=== PATIENT | female | born 1990 | race Caucasian/White ===

== ENCOUNTER 2021-01-31 15:06 | Outpatient (CLI) | payer OTHER, SELFPAY ==
[2021-01-31 15:34] VITALS: BP 140/81; PULSE 91
[2021-01-31 15:40] LABS: Basophils Percent Auto 0.2 % (0.2-1.2); Eosinophils Absolute Auto 0.2 K/mm3 (0-0.3); Eosinophils Percent Auto 1.4 % (0-4.4); Hematocrit 38.7 % (37.0-47.0); Hemoglobin 12.6 g/dL (12.0-15.0); Immature Granulocyte Absolute 0.07 K/mm3 (0.00-0.031); Immature Granulocyte Percent A 0.6 % (0-0.5); Lymphocytes Absolute Auto 2.24 K/mm3 (0.9-3.2); Mean Corpuscular HGB Conc 32.6 g/dl (32-36); Mean Corpuscular Hemoglobin 28.4 pg (26-34); Mean Corpuscular Volume 87.4 fl (80-100); Mean Platelet Volume 10.6 fl (7.4-10.4); Monocytes Absolute Auto 0.9 K/mm3 (0.1-0.6); Monocytes Percent Auto 7.6 % (2.6-8.5); Neutrophils Absolute Auto 8.4 K/mm3 (1.3-6.7); Neutrophils Percent Auto 71.2 % (45.5-73.1); Platelet Count Result 266 k/mm3 (150-375); Red Blood Count 4.43 M/mm3 (4.2-5.4); Red Cell Distribution Width 13.9 % (11.5-14.5); White Blood Count 11.8 K/mm3 (4.5-10.0)
[2021-01-31 15:46] VITALS: BP 145/83; PULSE 84
[2021-01-31 15:55] LABS: Alanine Aminotransferase 27 U/L (4-35); Albumin Level 3.9 g/dL (3.5-5.1); Alkaline Phosphatase 147 U/L (38-126); Anion Gap 10 mmol/L (8-16); Aspartate Amino Transferase 26 U/L (14-36); Bilirubin,Total 0.2 mg/dL (0.2-1.3); Blood Urea Nitrogen 10 mg/dL (7-17); Calcium 9.1 mg/dL (8.4-10.2); Carbon Dioxide 19 mmol/L (22-30); Chloride 107 mmol/L (98-107); Estimated Glomerular Filt Rate > 60; Glucose 84 mg/dL (65-105); Potassium 3.8 mmol/L (3.4-5.0); Sodium 136 mmol/L (137-145)
[2021-01-31 16:01] VITALS: BP 144/75; PULSE 84
[2021-01-31 16:20] VITALS: BP 140/81; PULSE 109
[2021-01-31 16:31] LABS: Add Urine Microscopic? YES; Appearance Urine Cloudy (Clear); Bacteria Urine Trace /hpf; Bilirubin Urine Negative (Negative); Blood Urine Negative (Negative); Color Urine Yellow (Yellow); Glucose Urine UA Negative (Negative); Ketones Urine Negative (Negative); Leukocyte Esterase Ur 2+ LEU/UL (NEGATIVE); Mucus Urine Few /lpf; Nitrate Urine Negative (Negative); Protein Urine 1+ mg/dL (Negative); RBC Urine 0-2 /hpf (0-2); Specific Grav Ur 1.019 (1.001-1.035); Squamous Epithelial Cell Urine Many /hpf (Few); Urobilinogen Urine Negative mg/dL (<2.0)
[2021-01-31 18:08] LABS: Creatinine Urine 110.9 mg/dL; Total Protein Urine Random 11 mg/dL
== END 2021-01-31 16:25 | disposition home or self-care (01) ==
LOC: ANHOBOP 15:12 → ANHOBPP 15:13
PROVIDERS: PCP Family Medicine Adolescent Medicine; Visit Provider Student in an Organized Health Care Education/Training Program
DX: O13.9 Gestational [pregnancy-induced] hypertension without significant proteinuria, unspecified trimester (principal); Z3A.00 Weeks of gestation of pregnancy not specified
CPT/HCPCS: 36415; 59025; 80053; 81001; 82570; 84156; 84550; 85025; 87086; 99199

== ENCOUNTER 2021-02-01 06:13 | Inpatient (IN) | payer OTHER, SELFPAY ==
[2021-02-01] VITALS (144 sets, daily range): BP systolic 109–156; BP diastolic 56–91; PULSE 63–137; RESP 20; TEMP 36.6–37; O2SAT 95–100; BMI 45.3
[2021-02-01] MEDS: OXYTOCIN 30 UNITS/NS 500 ML 30 UNITS/500 ML BAG 6 UNITS IV CONT (07:00)
[2021-02-01] MEDS: AMPICILLIN 2 GM/NS 100 ML 2 GM/100 ML BAG IVPB (07:03)
[2021-02-01] MEDS: LACTATED RINGERS 1,000 ML 125 ML IV CONT ×3 (07:03→19:45)
--- NOTE | 2021-02-01 07:19 | LDADM ---
This patient, Charlette Ramesh, was admitted to Labor/Delivery/Recovery 103 on 02/01/21 at 06:13. Plans for labor, pain management and were discussed with patient. Patient/family oriented to hospital policies and general routines including ID bracelet, bed and alarms, visiting hours, pain management, procedures, bathroom and other care routines, personal items, smoking policy, room service/diet and guest tray routines, infant security routines, and visiting hours. Patient/Family are encouraged to report perceived risks to care and to ask questions if they do not understand what they are told or what they should do. See OBIX for further documentation.
[2021-02-01 07:34] LABS: Basophils Percent Auto 0.4 % (0.2-1.2); Eosinophils Absolute Auto 0.2 K/mm3 (0-0.3); Eosinophils Percent Auto 2.1 % (0-4.4); Hematocrit 38.8 % (37.0-47.0); Hemoglobin 12.7 g/dL (12.0-15.0); Immature Granulocyte Absolute 0.06 K/mm3 (0.00-0.031); Immature Granulocyte Percent A 0.6 % (0-0.5); Lymphocytes Absolute Auto 2.06 K/mm3 (0.9-3.2); Lymphocytes Percent Auto 19.3 % (18.3-44.2); Mean Corpuscular HGB Conc 32.7 g/dl (32-36); Mean Corpuscular Hemoglobin 28.8 pg (26-34); Mean Platelet Volume 10.8 fl (7.4-10.4); Monocytes Absolute Auto 0.9 K/mm3 (0.1-0.6); Monocytes Percent Auto 8.3 % (2.6-8.5); Neutrophils Absolute Auto 7.4 K/mm3 (1.3-6.7); Neutrophils Percent Auto 69.3 % (45.5-73.1); Platelet Count Result 257 k/mm3 (150-375); Red Blood Count 4.41 M/mm3 (4.2-5.4); White Blood Count 10.7 K/mm3 (4.5-10.0)
--- NOTE | 2021-02-01 07:34 | PM.IMHP ---
H&P: HPI History of Present Illness Date/Time: 02/01/21 07:34 30 yo at 39w6d who presents for IOL for gestational hypertension. Pt has had mild range blood pressure throughout her . She denies any PreE symptoms. She endorses good movement. She denies vaginal bleeding, leakage of fluid or regular contractions. Her has been uncomplicated thus far. Chief Complaint: gestational hypertension Review of Systems Cardiovascular: Cardiovascular: Denies chest pain, Denies leg edema, Denies palpitations, Denies dyspnea and Denies dyspnea on exertion Respiratory: Respiratory: Denies cough, Denies dyspnea and Denies dyspnea on exertion Gastrointestinal: Gastrointestinal: Denies abdominal pain, Denies constipation, Denies diarrhea, Denies nausea and Denies vomiting Genitourinary: Genitourinary: Denies hematuria, Denies urinary frequency, Denies dysuria, Denies pelvic pain, Denies urinary incontinence and Denies vaginal discharge Neurologic: Reports system reviewed and no additional complaints, except as documented Psychiatric: Psychiatric: Reports no additional psychiatric complaints Endocrine: Endocrine: Denies palpitations [facility] Family History Family History (Updated 01/05/21 @ 12:40 by Miguel Meyer RN) Other No pertinent family history Social History Social History Smoking status: Never smoker Substance use: never Gender identity (if verbalized by the patient): Female Spiritual care concerns: No Meds Home Medications and Allergies Home Medications Medication Instructions Recorded Confirmed Type PNV cmb#95-ferrous fumarate-FA 1 tablet PO DAILY 01/05/21 01/05/21 History [] ergocalciferol (vitamin D2) 1,250 mcg PO WEEKLY 01/05/21 01/05/21 History [Vitamin D2] esomeprazole magnesium [Nexium] 20 mg PO DAILY 01/05/21 01/05/21 History Allergies Allergy/AdvReac Type Severity Reaction Status Date / Time No Known Allergies Allergy Verified 01/05/21 12:37 Vital Signs Vital Signs - 24 hr 02/01/21 07:19 02/01/21 07:30 Pulse Rate 94 95 Blood Pressure 156/90 H 149/81 H Exam Const: General: no acute distress Eyes: EOM: EOMs intact bilaterally Neck: Neck: supple Thyroid: thyroid normal Chest: Breast/axilla inspection: normal inspection of the breasts Breast/axilla palpation: normal palpation of the breasts, normal palpation of the axillae and no axillary lymphadenopathy Resp: Effort & Inspection: normal respiratory effort Auscultation: clear to auscultation bilaterally Cardio: Rate: regular rate Rhythm: regular rhythm GI: Inspection: non-distended GI Palp: Yes Soft to palpation, No Tenderness to palpation present (GI) and No Guarding due to palpation present (GI) Auscultation: normal bowel sounds : General: No bladder normal to palpation External Female Exam: normal external appearance Speculum Exam - Vagina: normal vaginal discharge and No vaginal bleeding Speculum Exam - Cervix: nontender Bimanual exam- vagina & uterus: No bladder normal to palpation and No Cervical tenderness present OB/external & speculum: No vaginal bleeding Skin: General skin exam: normal color and no rashes or lesions noted Neuro: Cognition (Neuro): normal cognition Speech: normal speech Extrem: General: normal to inspection and no edema Psych: Mental Status: mental status grossly normal Affect: normal affect Assessment and Plan Assessment and plan (1) Supervision of high risk , unspecified, third trimester: Code(s): O09.93 - Supervision of high risk , unspecified, third trimester Status: Acute Assessment and Plan: 30 yo G1 at 39w6d Rh+ GBS +, PCN in labor FHT cat 1 cvx 2/50/-3, plan for pitocin induction continuous EFM (2) Gestational hypertension: Code(s): O13.9 - Gestational [-induced] hypertension without significant proteinuria, unspecified trimester Status: Acute Assessment a
[2021-02-01 07:54] LABS: Rapid Plasma Reagin Non-Reactive (NonReactive)
[2021-02-01] MEDS: AMPICILLIN 1 GM/NS 50 ML 1 GM/50 ML BAG IVPB ×4 (10:56→23:43)
--- NOTE | 2021-02-01 11:02 | WPDANESEPP ---
Anes - Eval Pre Procedure Date/Time: 02/01/21 11:02 Pre Op Diagnosis: Induction of Labor Patient Data Age: 30 Gender: F Height: 1.6 m Weight: 116 kg Last Vital Signs Temp 36.6 C 02/01/21 07:30 Pulse 90 02/01/21 11:00 BP 141/84 H 02/01/21 11:00 Allergies Allergy/AdvReac Type Severity Reaction Status Date / Time No Known Allergies Allergy Verified 01/05/21 12:37 Home Medications Medication Instructions Recorded Confirmed Type PNV cmb#95-ferrous fumarate-FA 1 tablet PO DAILY 01/05/21 02/01/21 History [] ergocalciferol (vitamin D2) 1,250 mcg PO WEEKLY 01/05/21 02/01/21 History [Vitamin D2] esomeprazole magnesium [Nexium] 20 mg PO DAILY 01/05/21 01/05/21 History Laboratory Tests 02/01/21 02/01/21 02/01/21 06:51 06:51 06:51 WBC 10.7 K/mm3 H K/mm3 (4.5-10.0) RBC 4.41 M/mm3 M/mm3 (4.2-5.4) Hgb 12.7 g/dL g/dL (12.0-15.0) Hct 38.8 % % (37.0-47.0) MCV 88.0 fl fl (80-100) MCH 28.8 pg pg (26-34) MCHC 32.7 g/dl g/dl (32-36) RDW 14.0 % % (11.5-14.5) Plt Count 257 k/mm3 k/mm3 (150-375) MPV 10.8 fl H fl (7.4-10.4) Immature Gran % (Auto) 0.6 % H % (0-0.5) Neut % (Auto) 69.3 % % (45.5-73.1) Lymph % (Auto) 19.3 % % (18.3-44.2) [place] % (Auto) 8.3 % % (2.6-8.5) Eos % (Auto) 2.1 % % (0-4.4) Baso % (Auto) 0.4 % % (0.2-1.2) Lymph # (Auto) 2.06 K/mm3 K/mm3 (0.9-3.2) [place] # (Auto) 0.9 K/mm3 H K/mm3 (0.1-0.6) Eos # (Auto) 0.2 K/mm3 K/mm3 (0-0.3) Baso # (Auto) 0.0 K/mm3 K/mm3 (0.0-0.1) Abs Immat Gran (auto) 0.06 K/mm3 H K/mm3 (0.00-0.031) Absolute Neuts (auto) 7.4 K/mm3 H K/mm3 (1.3-6.7) Absolute Nucleated RBC 0.0 K/mm3 K/mm3 (0.0-0.012) Nucleated RBC % 0.0 % % (0.0-0.2) RPR Non-reactive (NonReactive) Blood Type O Positive Antibody Screen Negative Patient hx anesthesia problems: none Family hx anesthesia problems: none PMFSH Family History Family History Other No pertinent family history Social History Social History Smoking status: Never smoker Substance use: never Gender identity (if verbalized by the patient): Female Spiritual care concerns: No Comments HTN,MO BMI 45 Rh+ Exam Day of Procedure 02/01/21 11:02 Patient weight: morbidly obese Lungs: normal air movement Airway: Mallampati scale class III Neurological: alert and oriented
[2021-02-01] MEDS: ONDANSETRON INJ 4 MG/2 ML VIAL IV PUSH (19:45)
[2021-02-02] VITALS (86 sets, daily range): BP systolic 92–181; BP diastolic 43–167; PULSE 59–119; RESP 16–22; TEMP 35.9–37.4; O2SAT 95–100
[2021-02-02] MEDS: OXYTOCIN 30 UNITS/NS 500 ML 30 UNITS/500 ML BAG 34 UNITS IV CONT (03:32)
--- NOTE | 2021-02-02 03:50 | PM.OBPNLAB ---
Pain Control Date/time seen: 02/02/21 03:50 Pain control: epidural Pelvic Exam Dilation (cm): 10 station: +1 Amniotic membrane status: Ruptured Contractions Monitor mode: External Contraction pattern: Regular Status status: Category ll Assessment and Plan Assessment: induction ongoing Plan: Comments: Pt has been complete and pushing for 3 hours. station has remained +1. There is a moderate amount of caput noted on exam. FHT remain category 2 and the patient is afebrile. will plan for section. Risks and benefits discussed. all questions answered.
[2021-02-02] MEDS: LACTATED RINGERS 1,000 ML 125 ML IV CONT (03:54)
[2021-02-02] MEDS: AMPICILLIN 1 GM/NS 50 ML 1 GM/50 ML BAG IVPB (03:54)
[2021-02-02] MEDS: ceFAZolin 3 GM/D5W 100 ML 100 ML IVPB (06:08)
--- NOTE | 2021-02-02 07:15 | PM.PROC ---
Procedure Note - Detailed Date of procedure: 02/02/21 Pre-op diagnosis: Induction of Labor gestational hypertension arrest of descent Post-op diagnosis: same Procedure performed: repeat low transverse section Description of procedure: The patient was taken to the operating room where epidural anesthesia was found to be adequate. She was then prepped and draped in the usual sterile fashion in the dorsal supine position with a leftward tilt. A Pfannenstiel skin incision was then made with the scalpel and carried through to the underlying layer of fascia. The fascia was then incised in the midline and the incision extended laterally with the Doss scissors. The superior aspect of the fascia was then grasped with the Judith clamps, elevated, and the underlying rectus muscles dissected off bluntly and sharply. Attention was then turned to the inferior aspect of this incision which, in a similar fashion, was grasped, tented up with the Judith clamps, and the rectus muscles dissected off both bluntly and sharply. The rectus muscles were then in the midline, and the peritoneum identified, tented up, and entered sharply with the Metzenbaum scissors. The peritoneal incision was then extended superiorly and inferiorly with good visualization of the bladder. The Mobie retractor was then placed beneath the peritoneum for optimum visualization. The vesicouterine peritoneum identified, grasped with the pick-ups and entered sharply with the Metzenbaum scissors. This incision was then extended laterally and the bladder flap created digitally. The bladder blade was then reinserted and the lower uterine segment incised in a low, transverse fashion with the scalpel. The uterine incision was then extended superiorly and inferiorly bluntly. The bladder blade was removed and the ?s head delivered atraumatically. The nose and mouth were suctioned with the bulb suction, and the remainder of the infant was delivered atraumatically. The cord was clamped and cut. The infant was handed off to the waiting pediatricians (staff). Cord gasses were sent. The placenta was then removed manually, the uterus exteriorized, and cleared of all clots and debris. The uterine incision was repaired with 0 monocryl in a running fashion. A second imbricating layer of 0 monocryl was then placed. The uterus was returned to the abdomen. The uterus was then reinspected to ensure hemostasis as were all subfascial tissues. The peritoneum were re-approximated with 3-0 vicryl. The fascia was reapproximated with 0 vicryl in a running fashion. The subcutaneous tissue was reapproximated using 3-0 Vicryl in a running fashion. The skin was closed with 4-0 vicryl. The patient tolerated the procedure well. Sponge, lap and needle counts were correct times three. The patient was taken to the recovery room in stable condition. Anesthesia: epidural Surgeon: Tristan Hayes MD Estimated blood loss (mL): 690 IV fluids (mL): 1,000 Urine output (mL): 150 Drains: No Packing: No Pathology: none sent Complications: No immediate complications Condition: stable Disposition: floor ( ) Findings: normal appearing uterus fallopian tubes and ovaries bilaterally
[2021-02-02] MEDS: OXYTOCIN 30 UNITS/NS 500 ML 30 UNITS/500 ML BAG 125 UNITS IV CONT (09:38)
--- NOTE | 2021-02-02 10:17 | OBPPTRN ---
Patient transferred to post room # 280 via stretcher. Support person present. Oriented to unit, room, information board, rooming in, admission packet and security measures. Patient verbalizes understanding.
--- NOTE | 2021-02-02 12:10 | PC.NURSE ---
Mother called out for assist with feeding. Consulted with patient, reports fed well first feeding. Reviewed feeding cues, frequencies, duration of feedings, feeding elimination flow sheet, and signs of adequate intake. Demonstrated stimulation techniques to wake for feeding. Assisted with infant to breast. Reviewed positioning/alignment in cross cradle, holding breast in U hold and guided asymmetrical latch on. Several attempts before was able to latch correctly. Infant nursed eagerly, with steady draws and frequent swallowing noted. Reviewed signs of a correct latch, effective nursing and suck swallow ratio. was able to maintain latch. Mother reported tenderness at times, had slipped to shallow latch. Demonstrated how to adjust latch more deeply while feeding. Mother quickly reports she can feel infant is latched more deeply and has minimal tenderness. Suggested to stimulate infant while feeding to keep awake and nursing effectively for increased stimulation and increased intake. Instructed mother to call out for RN assistance if she is unable to latch infant for feeding or she has discomfort with nursing. Instructed feeding should be initiated three hours from start of last feeding or if feeding cues are noted before. Mother voiced understanding of information shared.
[2021-02-02] MEDS: HYDROcodone/acetaminophen (*CRX) 5-325 MG TABLET 1 TAB PO ×2 (13:16→16:39)
--- NOTE | 2021-02-02 14:30 | PC.NURSE ---
Mother called out for LC for questions. Parents question how we know is getting enough. Reviewed normal weight loss, jaundice, output and feeding freq. Suggested to wake every three hours to feed and put to breast before if is showing feeding cues. Advised primary RN is observing and assessing for all signs and will discuss if above criteria is out of normal limits. Discussed transitioning of milk by day 3-4, , signs of adequate intake, and engorgement/relief.
[2021-02-02] MEDS: DEXTROSE 5%/0.45% SOD CHL 1,000 ML 125 ML IV CONT (15:14)
[2021-02-02] MEDS: DOCUSATE SODIUM 100 MG CAPSULE PO (16:41)
[2021-02-02] MEDS: IBUPROFEN 600 MG TABLET PO ×2 (16:41→23:43)
[2021-02-02] MEDS: HYDROcodone/acetaminophen (*CRX) 10-325 MG TABLET 1 TAB PO ×2 (20:55→23:42)
[2021-02-03] MEDS: HYDROcodone/acetaminophen (*CRX) 10-325 MG TABLET 1 TAB PO ×3 (03:38→17:18)
[2021-02-03 05:00] VITALS: BP 129/69; PULSE 71; RESP 16; TEMP 36.4; O2SAT 99
[2021-02-03 05:49] LABS: Basophils Absolute Auto 0.1 K/mm3 (0.0-0.1); Basophils Percent Auto 0.3 % (0.2-1.2); Eosinophils Absolute Auto 0.2 K/mm3 (0-0.3); Eosinophils Percent Auto 1.3 % (0-4.4); Hematocrit 34.4 % (37.0-47.0); Hemoglobin 10.9 g/dL (12.0-15.0); Immature Granulocyte Absolute 0.15 K/mm3 (0.00-0.031); Immature Granulocyte Percent A 0.8 % (0-0.5); Lymphocytes Absolute Auto 2.89 K/mm3 (0.9-3.2); Lymphocytes Percent Auto 16.1 % (18.3-44.2); Mean Corpuscular HGB Conc 31.7 g/dl (32-36); Mean Corpuscular Hemoglobin 28.5 pg (26-34); Mean Corpuscular Volume 89.8 fl (80-100); Mean Platelet Volume 10.5 fl (7.4-10.4); Monocytes Absolute Auto 1.4 K/mm3 (0.1-0.6); Monocytes Percent Auto 7.6 % (2.6-8.5); Neutrophils Absolute Auto 13.3 K/mm3 (1.3-6.7); Neutrophils Percent Auto 73.9 % (45.5-73.1); Platelet Count Result 234 k/mm3 (150-375); Red Blood Count 3.83 M/mm3 (4.2-5.4); Red Cell Distribution Width 14.4 % (11.5-14.5)
--- NOTE | 2021-02-03 07:30 | PM.OBPNVD ---
OB - PN: Subj Subjective Date/time seen: 02/03/21 07:30 Interval history: Patient doing well this AM. she has note yet ambulated our of bed. She has not yet attempted PO. She reports adequate pain control. Her bleeding is normal and she reports normal lochia. She denies fever, chills, N/V. She has not yet passed flatus. Patient comments: no complaints and pain well controlled; no flatus present OB - PN: Obj Data Labs CBC & Chem 7: 02/03/21 05:05 Labs: Laboratory Results - last 24 hr 02/03/21 05:05 WBC 18.0 H RBC 3.83 L Hgb 10.9 L Hct 34.4 L MCV 89.8 MCH 28.5 MCHC 31.7 L RDW 14.4 Plt Count 234 MPV 10.5 H Immature Gran % (Auto) 0.8 H Neut % (Auto) 73.9 H Lymph % (Auto) 16.1 L [place] % (Auto) 7.6 Eos % (Auto) 1.3 Baso % (Auto) 0.3 Lymph # (Auto) 2.89 [place] # (Auto) 1.4 H Eos # (Auto) 0.2 Baso # (Auto) 0.1 Abs Immat Gran (auto) 0.15 H Absolute Neuts (auto) 13.3 H Absolute Nucleated RBC 0.0 Nucleated RBC % 0.0 OB - PN A/P Plan day: 1 Plan: routine care Comments: patient doing well this AM s/p almeida advance diet as tolerated H/H stable continue routine PP care Time Spent With Patient Time: Total time spent is greater than 50% in coordination of care (as documented) at patient's floor/unit and/or counseling patient: Time with patient: less than 15 minutes Review of Systems Constitutional: Constitutional: Reports no additional constitutional complaints Cardiovascular: Cardiovascular: Reports no additional cardiovascular complaints Respiratory: Respiratory: Reports no additional respiratory complaints Gastrointestinal: Gastrointestinal: Reports no additional gastrointestinal complaints Genitourinary: Genitourinary: Reports no additional female genitourinary complaints Exam Const: General: comfortable and no acute distress Resp: Effort & Inspection: normal respiratory effort Auscultation: clear to auscultation bilaterally Cardio: Rate: regular rate GI: GI Palp: Yes Soft to palpation and Yes Tenderness to palpation present (GI) (appropriately tender around incision ) Auscultation: normal bowel sounds Other: fundus firm and below umbilicus Incision C/D/I Urinary Catheter: Urinary Catheter: urine clear Psych: Appearance: grossly normal Mental Status: mental status grossly normal Affect: normal affect
[2021-02-03] MEDS: DOCUSATE SODIUM 100 MG CAPSULE PO ×2 (08:19→17:18)
[2021-02-03] MEDS: IBUPROFEN 600 MG TABLET PO ×2 (08:19→15:43)
[2021-02-03 08:20] VITALS: BP 117/65; PULSE 85; RESP 18; TEMP 36.5
[2021-02-03] MEDS: MULTIVIT/MIN/PREN/FOL AC/IRON TABLET 1 TAB PO (08:20)
--- NOTE | 2021-02-03 08:53 | WPDANLDPN2 ---
Anes-Prog Note L&D Date/Time: 02/03/21 08:53 Comfortable throughout: section Neuraxial method: epidural Epidural/Spinal procedure site: clean & non-tender Neuro status: Neuro function grossly intact. Cardiovascular status: normal Respiratory status: normal Airway patency: baseline Mental status: baseline Post-Op hydration status: normal Vital Signs: Last Vital Signs Temp 35.9 C L 02/02/21 23:40 Pulse 85 02/02/21 23:40 Resp 16 02/02/21 23:40 BP 133/63 02/02/21 23:40 Pulse Ox 99 02/02/21 23:40 Pain score (VAS): 5 I/O: Intake & Output 02/02/21 02/03/21 02/03/21 23:59 07:59 15:59 Intake Total 600 Output Total 2675 Balance -207 Post-procedural complaints: nausea moderate, treatment effective Patient feedback: Patient satisfied with anesthetic care.
--- NOTE | 2021-02-03 08:53 | WPDANLDNPN2 ---
Anes-Prog Note L&D-Neuraxial Date/Time: 02/03/21 08:53 Neuraxial medications: epidural PF morphine Opiod-related complaints: nausea moderate, treatment effective Patient feedback: Patient satisfied with post-operative pain management.
[2021-02-03] MEDS: ONDANSETRON INJ 4 MG/2 ML VIAL IV PUSH (09:40)
[2021-02-03] MEDS: PANTOPRAZOLE 40 MG TABLET PO (09:40)
[2021-02-03] MEDS: HYDROcodone/acetaminophen (*CRX) 5-325 MG TABLET 1 TAB PO (12:52)
[2021-02-03 19:30] VITALS: BP 140/80; PULSE 81; RESP 16; TEMP 36.3; O2SAT 99
--- NOTE | 2021-02-03 20:30 | PC.NURSE ---
Patient viewed the discharge video Mother & Baby Care, The First Two Weeks . Patient was given the opportunity and encouraged to ask questions. Patient verbalized understanding of information shared and has been given the mother/baby guide for home reference.
[2021-02-04] MEDS: SIMETHICONE 80 MG TAB.CHEW PO ×4 (00:20→20:08)
[2021-02-04] MEDS: HYDROcodone/acetaminophen (*CRX) 5-325 MG TABLET 1 TAB PO ×4 (00:20→19:04)
[2021-02-04] MEDS: IBUPROFEN 600 MG TABLET PO ×4 (00:21→20:08)
--- NOTE | 2021-02-04 07:29 | PM.OBPNVD ---
OB - PN: Subj Subjective Date/time seen: 02/04/21 07:29 Interval history: Patient doing well this AM. she is ambulating. She is tolerating PO. She reports adequate pain control. Her bleeding is normal and she reports normal lochia. She denies fever, chills, N/V. She has passed flatus. Patient comments: no complaints and pain well controlled; no flatus present OB - PN: Obj Data Labs CBC & Chem 7: 02/03/21 05:05 OB - PN A/P Plan day: 1 Plan: routine care Comments: patient doing well this AM patient back to baseline Infant staying for jaundice anticipate d/c home tomorrow Time Spent With Patient Time: Total time spent is greater than 50% in coordination of care (as documented) at patient's floor/unit and/or counseling patient: Time with patient: less than 15 minutes Review of Systems Constitutional: Constitutional: Reports no additional constitutional complaints Cardiovascular: Cardiovascular: Reports no additional cardiovascular complaints Respiratory: Respiratory: Reports no additional respiratory complaints Gastrointestinal: Gastrointestinal: Reports no additional gastrointestinal complaints Genitourinary: Genitourinary: Reports no additional female genitourinary complaints Exam Const: General: comfortable and no acute distress Resp: Effort & Inspection: normal respiratory effort Auscultation: clear to auscultation bilaterally Cardio: Rate: regular rate GI: GI Palp: Yes Soft to palpation and Yes Tenderness to palpation present (GI) (appropriately tender around incision ) Auscultation: normal bowel sounds Other: fundus firm and below umbilicus Incision C/D/I Urinary Catheter: Urinary Catheter: urine clear Psych: Appearance: grossly normal Mental Status: mental status grossly normal Affect: normal affect
--- NOTE | 2021-02-04 07:30 | P.DS_ITS ---
DS: Admitting Diagnosis Admitting Diagnosis Admitting Diagnosis: Induction of labor for gestational hypertension OB - DS: Summary OB Procedures : None OB Procedures Intrapartum: OB Procedures: : None Peripartum Data Delivery Method: Section Procedures: Procedures Operation Date: 02/02/21 06:00 Actual Procedures Side Surgeon p Section Tristan Hayes MD complications: none Status at Discharge Functional status at discharge: independent ambulation Overall status at discharge: patient is progressing back to baseline Time Spent with Patient Time attestation: Total time spent providing and/or coordinating discharge ser vices: Time spent: Less than 30 minutes Exam Const: General: comfortable and no acute distress Resp: Effort & Inspection: normal respiratory effort Auscultation: clear to auscultation bilaterally Cardio: Rate: regular rate GI: Inspection: non-distended GI Palp: Yes Soft to palpation, No Firmness to palpation present (GI), Yes Tenderness to palpation present (GI) (mild tenderness over incision ) and No Guarding due to palpation present (GI) Auscultation: normal bowel sounds Psych: Appearance: grossly normal Mental Status: mental status grossly normal Discharge Plan Discharge Discharging Clinician: Tristan Hayes Patient Disposition: Home, Self-Care Activity: as tolerated and pelvic rest Diet: regular Patient Instructions: Antibiotic Form, (DC) Stand Alone Forms: General Discharge Information Follow-up/Referrals: Jimenez Chao MD [Physician] - 4 Weeks Discharge Medications: New hydrocodone-acetaminophen 5-325 mg Tablet 1 tablet PO Q3H PRN (Reason: Moderate Pain (4-6)) Qty: 28 RF: 0 ibuprofen 600 mg Tablet 600 mg PO Q6H PRN (Reason: Cramping) Qty: 30 RF: 0 acetaminophen [Mapap (acetaminophen)] 325 mg Tablet 650 mg PO Q6H PRN (Reason: Mild Pain (1-3)) Qty: 30 RF: 0 Ild-R-Mepvve Cream 1 applic topical PRN PRN (Reason: Sore Nipples) Qty: 28 RF: 0 Continued ergocalciferol (vitamin D2) [Vitamin D2] 1,250 mcg (50,000 unit) Capsule 1,250 mcg PO WEEKLY RF: 0 esomeprazole magnesium [Nexium] 20 mg Capsule,Delayed Release(Dr/Ec) 20 mg PO DAILY RF: 0 PNV cmb#95-ferrous fumarate-FA [] 28 mg iron- 800 mcg Tablet 1 tablet PO DAILY RF: 0 Date of admission: 02/01/21 06:13 Primary Care Provider: Trent Carpio Admitting Provider: Jimenez Chao Attending physician on admission: Jimenez Chao Condition: Stable
[2021-02-04 07:45] VITALS: BP 140/82; PULSE 94; RESP 18; TEMP 37.1
[2021-02-04] MEDS: DOCUSATE SODIUM 100 MG CAPSULE PO (08:37)
[2021-02-04] MEDS: PANTOPRAZOLE 40 MG TABLET PO (08:38)
[2021-02-04] MEDS: MULTIVIT/MIN/PREN/FOL AC/IRON TABLET 1 TAB PO (08:38)
[2021-02-04 19:50] VITALS: BP 106/60; PULSE 75; RESP 18; TEMP 36.8
[2021-02-05] MEDS: SIMETHICONE 80 MG TAB.CHEW PO (04:58)
[2021-02-05] MEDS: HYDROcodone/acetaminophen (*CRX) 5-325 MG TABLET 1 TAB PO (04:58)
[2021-02-05] MEDS: IBUPROFEN 600 MG TABLET PO (04:58)
[2021-02-05 07:45] VITALS: BP 144/85; PULSE 85; RESP 16; TEMP 37.5; O2SAT 98
[2021-02-05] MEDS: DOCUSATE SODIUM 100 MG CAPSULE PO (08:43)
[2021-02-05] MEDS: MULTIVIT/MIN/PREN/FOL AC/IRON TABLET 1 TAB PO (08:43)
[2021-02-05] MEDS: PANTOPRAZOLE 40 MG TABLET PO (08:43)
--- NOTE | 2021-02-05 10:10 | PC.NURSE ---
Consult with pt., mother reports she has bottle fed for the last 24 hours due to nipple pain. Mother had excoriation to areolas from incorrect pump flange placement and lines to center of nipple from shallow latch. Discussed stimulation and milk supply. Reviewed options of continuing to bottle feed, to initiate pumping if she wishes to give breastmilk or begin to put infant to breast for feedings. Mother states she would like to pump and bottle feed and does not feel she wishes to put infant to breast at this time, she may change her milk later. Advised mother she can call or return for assist as needed. Reviewed instructions given on breast pump care and usage, pumping schedule, nipple care, and collection and storage of breast milk. Encouraged [id number], breast massage and manual expression to stimulate supply. Pumping log provided and reviewed. Assessed patient for correct flange 27mm size, placement and draw. Stressed to keep flanges centered to nipple and to keep pump draw setting on low. Patient verbalizes and demonstrates understanding of instructions. Reviewed nipple care of warm moist compresses several times her day, lanolin and gel pads provided. Mother will continue to feed infant as much as she desires per feeding using EBM/formula per feeding. Mother is feeding as required and waking to feed if needed. Infant is currently meeting outcomes for weight, output, jaundice and feeding frequencies. Mother states she feels confident to continue current feeding plan at home. Reviewed transition to breast milk, signs of adequate intake, and engorgement/relief. Instructed to call ICP if intake/output less than required. Reviewed regular medications mother is taking. Information provided per Yee. Reviewed community resources on the [employer] website and in the Mom/Baby guide. Information on outpatient services provided. Mother has no further questions at this time.
[2021-02-06 08:36] VITALS: BP 142/78; PULSE 72; RESP 20; TEMP 36.9
== END 2021-02-05 12:16 | disposition home or self-care (01) | DRG 788 ==
LOC: ANHLDR 02-02 10:17 → ANHOB2 02-02 16:21 → ANHLDR 02-07 10:24 → ANHOB2 02-07 10:24
PROVIDERS: Admitting Provider Student in an Organized Health Care Education/Training Program; PCP Family Medicine Adolescent Medicine; Visit Provider Student in an Organized Health Care Education/Training Program
PROC: 10D00Z1 Extraction of Products of Conception, Low, Open Approach (ICD-10-PCS; CPT 59514; principal; 2021-02-02 06:00)
DX: O13.4 Gestational [pregnancy-induced] hypertension without significant proteinuria, complicating childbirth (principal); Z37.0 Single live birth; Z3A.40 40 weeks gestation of pregnancy; O32.4XX0 Maternal care for high head at term, not applicable or unspecified; O69.81X0 Labor and delivery complicated by cord around neck, without compression, not applicable or unspecified; O99.824 Streptococcus B carrier state complicating childbirth; O99.214 Obesity complicating childbirth; E66.01 Morbid (severe) obesity due to excess calories; O99.62 Diseases of the digestive system complicating childbirth; K21.9 Gastro-esophageal reflux disease without esophagitis
CPT/HCPCS: 36415; 59025; 80053; 81001; 82570; 84156; 84550; 85025; 86592; 86850; 86900; 86901; 87086; 87088; 99199; A9270; J0131; J0290; J0690; J1100; J1885; J2274; J2405; J2590; J2795; J7120

== ENCOUNTER 2023-06-07 09:03 | Emergency (ER) | payer BC, SELFPAY ==
[2023-06-07 09:06] VITALS: BP 144/90; PULSE 104; RESP 20; TEMP 36.7; O2SAT 100
[2023-06-07 09:26] LABS: Basophils Absolute Auto 0.1 K/mm3 (0.0-0.1); Basophils Percent Auto 0.5 % (0.2-1.2); Eosinophils Absolute Auto 0.5 K/mm3 (0-0.3); Eosinophils Percent Auto 4.2 % (0-4.4); Hematocrit 41.8 % (37.0-47.0); Hemoglobin 13.8 g/dL (12.0-15.0); Immature Granulocyte Absolute 0.04 K/mm3 (0.00-0.031); Immature Granulocyte Percent A 0.3 % (0-0.5); Lymphocytes Absolute Auto 2.79 K/mm3 (0.9-3.2); Lymphocytes Percent Auto 23.4 % (18.3-44.2); Mean Corpuscular Hemoglobin 29.4 pg (26-34); Mean Corpuscular Volume 89.1 fl (80-100); Mean Platelet Volume 9.5 fl (7.4-10.4); Monocytes Absolute Auto 0.8 K/mm3 (0.1-0.6); Monocytes Percent Auto 6.9 % (2.6-8.5); Neutrophils Absolute Auto 7.7 K/mm3 (1.3-6.7); Neutrophils Percent Auto 64.7 % (45.5-73.1); Platelet Count Result 305 k/mm3 (150-375); Red Blood Count 4.69 M/mm3 (4.2-5.4); Red Cell Distribution Width 12.8 % (11.5-14.5); White Blood Count 11.9 K/mm3 (4.5-10.0)
[2023-06-07] MEDS: SODIUM CHLORIDE 0.9% IV 1,000 ML 999 ML IV CONT (09:34)
[2023-06-07 09:35] LABS: Alanine Aminotransferase 26 U/L (6-35); Albumin Level 4.4 g/dL (3.5-5.1); Alkaline Phosphatase 80 U/L (38-126); Anion Gap 9 mmol/L (8-16); Aspartate Amino Transferase 22 U/L (14-36); Bilirubin,Total 0.5 mg/dL (0.2-1.3); Blood Urea Nitrogen 9 mg/dL (7-17); Calcium 8.9 mg/dL (8.4-10.2); Carbon Dioxide 22 mmol/L (22-30); Chloride 104 mmol/L (98-107); Estimated CRCL calculation 131 ml/min; Estimated Glomerular Filt Rate > 60; Glucose 100 mg/dL (65-110); Potassium 3.9 mmol/L (3.4-5.0); Sodium 135 mmol/L (137-145)
[2023-06-07 10:08] LABS: Bacteria Urine None Seen /hpf; Non Pathogenic Casts 0-2; RBC Urine >100 /hpf (0-2); Squamous Epithelial Cell Urine Few /hpf (Few)
--- NOTE | 2023-06-07 10:08 | ED.GENADULT ---
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 Patient reports that she is approximately 8 weeks and this is her second . Patient states she was in the shower this morning and noticed some vaginal bleeding and did pass a clot. Patient states that the bleeding is significantly improved. Patient denies any current abdominal pain. Patient did have an ultrasound last week that showed an intrauterine . Patient's blood type is O+ by the EMR Related Data Home Medications Medication Instructions Recorded Confirmed esomeprazole magnesium 20 mg 20 mg PO DAILY 01/05/21 01/05/21 capsule,delayed release (Nexium) vit no.95-ferrous 1 tablet PO DAILY 01/05/21 02/01/21 fumarate 28 mg-folic acid 800 mcg tablet () Allergies Allergy/AdvReac Type Severity Reaction Status Date / Time No Known Allergies Allergy Verified 06/07/23 09:10 Review of Systems Review of Systems: All systems reviewed & are unremarkable except as noted in HPI and below PMFSH Family History Family History Other No pertinent family history Social History Social History Smoking status: Never smoker Substance use: never Gender identity (if verbalized by the patient): Female Spiritual care concerns: No Exam Narrative: APPEARANCE: Well appearing, no pain, no distress, well-nourished. HEAD: normocephalic, atraumatic. EYES: PERRLA/EOMI, conjunctivae clear. NOSE: Normal no drainage NECK: Supple. No adenopathy, no masses. RESPIRATORY: Airway patent, respirations nonlabored. Clear to auscultation bilaterally, no rales, rhonchi, wheezing. CARDIOVASCULAR: Regular rate and rhythm without murmurs rubs or gallops. ABDOMINAL: Soft, nontender, nondistended, normal bowel sounds Pelvic: Small amount of bleeding during the pelvic exam, no active hemorrhage, normal cervix MUSCULOSKELETAL: Moves all extremities. Strength/ROM intact, No edema, No calf tenderness. NEURO: Alert. Cranial nerves II through XII intact. Grossly intact SKIN: Warm, dry. Normal Color Course Course Emergency Course: 33-year-old female presented ED for evaluation of vaginal bleeding. Patient was afebrile with only minor leukocytosis of 11.9, patient's hemoglobin is stable at 13.8. Patient had no significant abnormalities on her CMP UA did show leuk esterase positive and had blood and believe this is more contamination. On pelvic exam patient did have some blood in the vaginal vault, cervix closed. Bedside ultrasound showed a suspected intrauterine with heartbeat, since the patient is only 8 weeks I was unable to measure the heartbeat with the transabdominal probe. Patient was encouraged of close follow-up with her STATION MANAGER Dr. Croft. All question concerns were addressed and patient was well-appearing at time of discharge. Patient's blood type was O+ and patient did not need to be treated with RhoGAM. Vital Signs Vital signs: Vital Signs Temperature 98.1 F 06/07/23 09:06 Pulse Rate 104 H 06/07/23 09:06 Respiratory Rate 20 06/07/23 09:06 Blood Pressure 144/90 H 06/07/23 09:06 Pulse Oximetry 100 06/07/23 09:06 Oxygen Delivery Room Air 06/07/23 09:06 Temperature 98.1 F 06/07/23 09:06 Pulse Rate 76 06/07/23 11:55 Respiratory Rate 17 06/07/23 11:55 Blood Pressure 133/74 06/07/23 11:55 Pulse Oximetry 99 06/07/23 11:55 Oxygen Delivery Room Air 06/07/23 09:06 Medical Decision Making Vital Signs Vital Signs: Vital Signs Temperature 98.1 F 06/07/23 09:06 Pulse Rate 104 H 06/07/23 09:06 Respiratory Rate 20 06/07/23 09:06 Blood Pressure 144/90 H
[2023-06-07 10:26] LABS: Add Urine Microscopic? YES; Appearance Urine Cloudy (Clear); Bilirubin Urine 1+ (Negative); Blood Urine 3+ (Negative); Color Urine Red (Yellow); Glucose Urine UA Negative (Negative); Ketones Urine Negative (Negative); Leukocyte Esterase Ur 1+ LEU/UL (Negative); Nitrate Urine Negative (Negative); Protein Urine 1+ mg/dL (Negative); Specific Grav Ur 1.026 (1.001-1.035); pH Urine 6.5 (5.0-9.0)
[2023-06-07 11:55] VITALS: BP 133/74; PULSE 76; RESP 17; O2SAT 99
== END 2023-06-07 11:56 | disposition home or self-care (01) ==
PROVIDERS: Emergency Provider Emergency Medicine; PCP Family Medicine Adolescent Medicine
DX: O20.9 Hemorrhage in early pregnancy, unspecified (principal); Z3A.08 8 weeks gestation of pregnancy
CPT/HCPCS: 36415; 80053; 81001; 84702; 85025; 87086; 87088; 96360; 99284; J7030

== ENCOUNTER 2023-12-19 13:15 | Emergency (ER) | payer BC, OTHER, SELFPAY ==
[2023-12-19 13:28] VITALS: BP 123/70; PULSE 96; RESP 18; TEMP 36.8; O2SAT 98
--- NOTE | 2023-12-19 13:30 | ED.URI ---
HPI - URI/Sore Throat General Chief Complaint: Upper Respiratory Infection Stated Complaint: cough,sorethroat Time Seen by Provider: 12/19/23 13:30 Source: patient, RN notes reviewed and old records reviewed Mode of arrival: ambulatory Limitations: no limitations History of Present Illness HPI Narrative: 33-year-old female presents to the [facility] with complaints of a cough, congestion and sore throat that started Friday night, 4 days ago. Has taken throat lozenges ears and Tylenol. No other treatment prior to arrival Patient is 36 weeks , Dr. Doherty is her OB. Has not contacted his office Related Data Home Medications Medication Instructions Recorded Confirmed esomeprazole magnesium 20 mg 20 mg PO DAILY 01/05/21 12/19/23 capsule,delayed release (Nexium) vit no.95-ferrous 1 tablet PO DAILY 01/05/21 12/19/23 fumarate 28 mg-folic acid 800 mcg tablet () Allergies Allergy/AdvReac Type Severity Reaction Status Date / Time No Known Allergies Allergy Verified 12/19/23 13:31 Review of Systems Review of Systems: All systems reviewed & are unremarkable except as noted in HPI and below Constitutional: Constitutional: Reports no additional constitutional complaints Eyes: Eyes: Reports no additional eye complaints ENT: Reports as per HPI Cardiovascular: Cardiovascular: Reports no additional cardiovascular complaints, Denies chest pain and Denies dyspnea Respiratory: Respiratory: Reports as per HPI, Denies chest congestion, Reports cough and Denies dyspnea Gastrointestinal: Gastrointestinal: Reports no additional gastrointestinal complaints, Denies abdominal pain, Denies nausea and Denies vomiting Musculoskeletal: Musculoskeletal: Reports no additional musculoskeletal complaints Integumentary/Breasts: Skin/Breast: Reports system reviewed and no additional complaints, except as docu Neurologic: Reports system reviewed and no additional complaints, except as documented Psychiatric: Psychiatric: Reports no additional psychiatric complaints Allergic/Immunologic: Allergic/Immunologic: Reports no additional allergic/immunologic complaints [facility] Family History Family History Other No pertinent family history Social History Social History Smoking status: Never smoker Substance use: never Gender identity (if verbalized by the patient): Female Spiritual care concerns: No Comments At the time of my signature, I reviewed and agree with the nursing past medical, surgical, social, and family history. There is no relevant family history pertinent to the patient complaint. Exam Const: General: cooperative, healthy appearing, comfortable, no acute distress, well developed, alert and well nourished Nutritional Appearance: well nourished Orientation/consciousness: patient oriented x3 Limitations: no limitations Other: HENMT: Head: normal to inspection Ears: hearing grossly normal bilaterally, external ears normal, TM's normal bilaterally, EAC's normal, mastoids normal and no periauricular adenopathy Face/Nose/Sinus: Normal external nose present, Normal nares present, Normal nasal mucous membranes and turbinates present, Nasal discharge present clear bilateral, normal facial exam and face symmetric Face and sinus: normal facial exam and face symmetric Mouth: Yes Normal oral and palatal mucosa present, Yes lip normal, Yes tongue normal and Yes moist mucous membranes Throat: posterior oropharynx normal, uvula midline and postnasal drainage Eyes: General: appearance normal, both eyes and all related structures Alignment and Position: alignment normal Periorbital: periorbital findings normal Pupils: Equal, round and reactive pupils present EOM: EOMs intact bilaterally Neck: Neck: normal visual inspection, full ROM, no lymphadenopathy and no meningeal signs Ch
[2023-12-19 13:32] VITALS: BP 123/70; PULSE 96; RESP 18; TEMP 36.8; O2SAT 98
== END 2023-12-19 14:08 | disposition home or self-care (01) ==
PROVIDERS: Emergency Provider Nurse Practitioner; PCP Family Medicine Adolescent Medicine
DX: O99.513 Diseases of the respiratory system complicating pregnancy, third trimester (principal); Z3A.36 36 weeks gestation of pregnancy; J06.9 Acute upper respiratory infection, unspecified; Z20.822 Contact with and (suspected) exposure to COVID-19
CPT/HCPCS: 87081; 87426; 87804; 87880; 99213; G0463

== ENCOUNTER 2024-01-07 08:13 | Outpatient (CLI) | payer BC, OTHER, SELFPAY ==
[2024-01-07 08:58] LABS: Hematocrit 43.6 % (37.0-47.0); Hemoglobin 14.1 g/dL (12.0-15.0); Mean Corpuscular HGB Conc 32.3 g/dl (32-36); Mean Corpuscular Hemoglobin 30.2 pg (26-34); Mean Corpuscular Volume 93.4 fl (80-100); Mean Platelet Volume 10.3 fl (7.4-10.4); Platelet Count Result 249 k/mm3 (150-375); Red Blood Count 4.67 M/mm3 (4.2-5.4); Red Cell Distribution Width 13.6 % (11.5-14.5); White Blood Count 11.1 K/mm3 (4.5-10.0)
[2024-01-07 10:58] LABS: Rapid Plasma Reagin Non-Reactive (NonReactive)
== END 2024-01-07 08:14 | disposition home or self-care (01) ==
LOC: ANHLAB 08:15
PROVIDERS: PCP Family Medicine Adolescent Medicine; Visit Provider Obstetrics & Gynecology
DX: Z01.818 Encounter for other preprocedural examination (principal)
CPT/HCPCS: 36415; 85027; 86592; 86850; 86900; 86901

== ENCOUNTER 2024-01-08 09:35 | Inpatient (IN) | payer BC, OTHER, SELFPAY ==
[2024-01-08] VITALS (49 sets, daily range): BP systolic 100–160; BP diastolic 21–102; PULSE 66–93; RESP 16–19; TEMP 36.1–36.6; O2SAT 93–100; BMI 44.9
--- NOTE | 2024-01-08 08:33 | PM.IMHP ---
H&P: HPI History of Present Illness Date/Time: 01/08/24 08:33 Chief Complaint: Here for C section Narrative: 33 y/o at 39 1/7 weeks with prior , here for scheduled repeat . In addition, she desires permanent contraception with tubal ligation. has been complicated by first trimester bleeding, resolved. She has GERD, treated with Nexxium. She had a GCT of 158, but refused to do the 3 hour GTT. She collected accuhecks for a week and these were normal. GBS positive. Good movement. Rare contractions. Review of Systems Review of Systems: All systems reviewed & are unremarkable except as noted in HPI and below PMFSH Past Medical History Medical History (Updated 01/08/24 @ 08:38 by Jimenez Chao MD) GERD (gastroesophageal reflux disease) Surgical History Surgical History (Updated 01/08/24 @ 08:38 by Jimenez Chao MD) History of delivery Family History Family History Other No pertinent family history Social History Social History Smoking status: Never smoker Substance use: never Gender identity (if verbalized by the patient): Female Spiritual care concerns: No Meds Home Medications and Allergies Home Medications Medication Instructions Recorded Confirmed Type esomeprazole magnesium 20 mg 20 mg PO DAILY 01/05/21 01/07/24 History capsule,delayed release (Nexium) vit no.95-ferrous 1 tablet PO DAILY 01/05/21 01/07/24 History fumarate 28 mg-folic acid 800 mcg tablet () Allergies Allergy/AdvReac Type Severity Reaction Status Date / Time No Known Allergies Allergy Verified 01/07/24 13:58 Exam Const: Orientation/consciousness: patient oriented x3 Other: Well-developed, well-nourished female in no acute distress. Neck: Thyroid: thyroid normal Lymphatic: no lymphadenopathy noted (in neck, axilla or inguinal nodes) Resp: Effort & Inspection: normal respiratory effort Auscultation: clear to auscultation bilaterally Cardio: Rate: regular rate Rhythm: regular rhythm Heart sounds: S1 normal heart sound present and S2 normal heart sound present GI: Other: ABD: Soft, nontender, nondistended, gravid. FHR 150 bpm. FH 39 cm. No guarding or rebound tenderness. No hepatosplenomegaly. : General: Yes no CVA tenderness Other: Cervix closed, thick. Back/Spine/Pelvis: Back: no CVA tenderness Skin: General skin exam: normal color and no rashes or lesions noted Neuro: General: patient oriented x3 Extrem: Other: Extremities: nontender with no edema Psych: Mental Status: mental status grossly normal Affect: normal affect Assessment and Plan Assessment and plan (1) History of delivery: Code(s): Z98.891 - History of uterine scar from previous surgery Status: Acute Assessment and Plan: A: IUP at 39 1/7 weeks with prior , desires repeat. Desired sterility. P: Offered repeat . She would also like permanent contraception with concurrent tubal ligation. She understands there are temporary methods of contraception available to her. She understands that there are nonsurgical options as well as surgical options. She understands that tubal ligation will render her permanently sterile. She understands that there is a failure rate associated with tubal ligation, as well as an inherent ectopic gestation risk. Furthermore, she understands risks of surgery to include risks of anesthesia, risks of pain, infection, bleeding, blood products, thromboembolic phenomena and damage to adjacent structures such as bowel, bladder, ureters, blood vessels and nerves. She understands all these risks and elects to proceed with repeat delivery with concurrent tubal ligation. (2) Term : Code(s): Z34.90 - Encounter for supervisio
[2024-01-08] MEDS: ACETAMINOPHEN 500 MG TABLET 1000 MG PO (10:08)
[2024-01-08] MEDS: LACTATED RINGERS 1,000 ML 125 ML IV CONT ×3 (10:45→13:05)
[2024-01-08] MEDS: ONDANSETRON INJ 4 MG/2 ML VIAL IV PUSH ×2 (11:36→17:31)
[2024-01-08] MEDS: FAMOTIDINE 20 MG/2 ML VIAL IV PUSH (11:36)
--- NOTE | 2024-01-08 11:38 | WPDANESEPPF ---
Anes - Initial Pre Proc Eval Procedure: Operation Date: 01/08/24 12:00 Proposed Procedures p Repeat Section with Tubal Ligation with Rings - Jimenez Chao MD Date/Time: 01/08/24 11:38 Surgeon: Jimenez Chao MD Pre Op Diagnosis: C/S Patient Data Age: 33 Gender: F Height: 1.6 m Weight: 115 kg Last Vital Signs Pulse 89 01/08/24 11:01 BP 145/80 H 01/08/24 11:01 O2 Del Method Room Air 01/08/24 10:17 Allergies Allergy/AdvReac Type Severity Reaction Status Date / Time No Known Allergies Allergy Verified 01/07/24 13:58 Home Medications Medication Instructions Recorded Confirmed Type esomeprazole magnesium 20 mg 20 mg PO DAILY 01/05/21 01/07/24 History capsule,delayed release (Nexium) vit no.95-ferrous 1 tablet PO DAILY 01/05/21 01/07/24 History fumarate 28 mg-folic acid 800 mcg tablet () Patient hx anesthesia problems: none Family hx anesthesia problems: none Results Review: All pre-operative results and documents have been reviewed as part of the pre-operative evaluation. [facility] Past Medical History Medical History GERD (gastroesophageal reflux disease) Surgical History Surgical History History of delivery Family History Family History Other No pertinent family history Social History Social History Smoking status: Never smoker Substance use: never Do You Feel Safe in your Home?: Yes Lack of Transportation: YES Lack of Food: Never True Current Housing: I Have Housing Concerned About Future Housing: No Difficulty Paying Gas/Electric Bills: No Difficulty Paying for Meds: No Currently Unemployed: No Education: High School Diploma/GED Difficulty w/ Childcare or Family Care: No Gender identity (if verbalized by the patient): Female Spiritual care concerns: No Anes - Eval Final PreProcedure Day of Procedure 01/08/24 11:38 Patient weight: morbidly obese Heart: regular rate and rhythm Lungs: clear to auscultation Airway: Mallampati scale class II Neurological: alert and oriented Last oral intake: >/= 8 hours ASA classification: III Emergent: no Anesthetic plan: proceed Anesthesia type and monitoring: regional spinal and standard monitoring Results Review: All pre-operative results and documents have been reviewed as part of the pre-operative evaluation. Informed Consent: The patient's anesthetic plan and its attendant risks and benefits were discussed with the patient/family/POA. Questions were solicited and answers provided to the satisfaction of the patient/family/POA.
--- NOTE | 2024-01-08 12:04 | WPDHPUPDATE1 ---
History and Physical Update Update Date/Time: 01/08/24 12:04 History and Physical has been reviewed, including an updated exam of the patient. There are NO changes in the patient's condition. Risks, benefits, and alternatives have been discussed and questions answered. Patient agrees to proceed with procedure.
[2024-01-08] MEDS: ceFAZolin 2 GM/D5W 50 ML 2 GM/50 ML BAG IVPB (12:06)
--- NOTE | 2024-01-08 13:17 | W.PM.OBCSD ---
OB - Delivery Note Procedure Delivery date: 01/08/24 Pre-op diagnosis: Positive Group B Strep (GBS) and Previous Delivery Post-op Diagnosis: Same (IUP at 39 1/7 weeks, prior , desired sterility, GBS colonization) Induction method: None Delivery monitor: External FHT and External Uterine Procedure Performed: Repeat (with concurrent bilateral tubal ligation) Secondary branch: low cervical, transverse Surgeon: Jimenez Chao MD Anesthesia type: Spinal Description of Procedure/Findings: The patient was taken to the operating room where she was prepared and draped in the usual sterile fashion in dorsal supine position with a leftward tilt. She received cefazolin preoperatively. Spinal anesthesia was found to be adequate. A Pfannenstiel skin incision was made along the previous scar line and was carried through to the underlying layer of the fascia. The fascia was incised in the midline and the incision was extended laterally. The fascia was dissected free of the underlying rectus muscles. The rectus muscles were in the midline. The peritoneum was identified, tented up and entered sharply. The peritoneal incision was extended superiorly and inferiorly with good visualization of the bladder. The bladder blade was placed. The vesicouterine peritoneum was identified, tented up and entered sharply. The incision was extended laterally and the bladder flap was developed. The bladder blade was replaced. The uterus was then incised sharply in a transverse fashion along the lower uterine segment. The incision was extended laterally. The 's head was delivered atraumatically to the sterile field, followed by the body. The nose and mouth were bulb suctioned. After a delay, the cord was clamped and cut. The infant was handed off the field. Cord blood was collected. The placenta was removed manually and was passed off the field. The uterus was exteriorized and cleared of all clots and debris. The uterine incision was reapproximated using 0 Monocryl in a running, locked fashion. Excellent hemostasis resulted as did excellent reapproximation of the normal anatomy. The left fallopian tube was then identified by following it out to the fimbriated end. It was grasped in the midportion with a [place] clamp and a loop of tube was ligated with a free tie of 0 plain gut. The tubal segment was then transected and the specimen was passed off to be sent to pathology. Hemostasis was excellent. Attention was turned to the right fallopian tube which was similarly identified, ligated and transected. Once again, excellent hemostasis resulted. The uterus was returned the abdomen. The pelvis was irrigated copiously with warmed normal saline. Rigorous hemostasis was assured. The fascial layer was reapproximated using 0 Vicryl in a running fashion. The skin was closed with a running, subcuticular stitch of 4 0 Vicryl. Dermaflex was applied externally. Sponge, lap, needle and instrument counts were correct. The patient was taken to the recovery room in stable condition. The infant went to the nursery in stable condition. I was present and scrubbed the entire procedure. Specimen: Yes (cord blood, segments of bilateral Fallopian tubes) Estimated Blood Loss: 515 Drains: Yes (almeida) Packing: No Pathology: Yes (segments of bilateral Fallopian tubes) Complications: None Condition: Stable Disposition: PACU Baby Date of : 01/08/24 Time of : 12:42 Weeks of gestation at delivery: 39 gender: Male Weight (pounds): 9 Weight (ounces): 4 presentation: vertex Placenta delivery description: Manual Removal and Normal Configuration Cord Vessel Description: 3 Vessels and Delayed Cord Clamping score one minute: 9 score five minutes: 9
--- NOTE | 2024-01-08 13:22 | PM.OBDSVD ---
DS: Admitting Diagnosis Discharge Date 01/10/24 Admitting Diagnosis IUP at 39 1/7 weeks Prior Desired sterility GBS colonization DS: Discharge Diagnosis Discharge Diagnosis (1) Unwanted fertility: Code(s): Z30.09 - Encounter for other general counseling and advice on contraception Status: Acute (2) delivery delivered: Code(s): O82 - Encounter for delivery without indication Status: Acute OB - DS: Summary OB Procedures : None OB Procedures Intrapartum: , Tubal ligation and GBS prophylaxis OB Procedures: : None Peripartum Data Procedures: Procedures Operation Date: 01/08/24 12:00 <No data on this case meets the specified criteria> Repeat LTCS with concurrent BTL via modified [place] technique Time Spent with Patient Time attestation: Total time spent providing and/or coordinating discharge services: Discharge Plan Discharge Attending physician on discharge: Jimenez Chao Discharging Clinician: Jimenez Chao Patient Disposition: Home, Self-Care Activity: may shower, may drive after 2 weeks and pelvic rest Diet: regular Wound Care Instructions: incision open to air Discharge Instructions: Call or return if temperature above 100.4? F, increased abdominal pain, increased vaginal bleeding or any new problems. Stand Alone Forms: General Discharge Information Follow-up/Referrals: Jimenez Chao MD [Physician] - 4 Weeks Discharge Medications: New ibuprofen 600 mg tablet 600 mg PO Q6H PRN (Reason: cramps) Qty: 30 0RF hydrocodone-acetaminophen 5-325 mg tablet 1 - 2 tablet PO Q6H PRN (Reason: pain) Qty: 30 0RF Continued esomeprazole magnesium [Nexium] 20 mg Capsule,Delayed Release(Dr/Ec) 20 mg PO DAILY PNV cmb#95-ferrous fumarate-FA [] 28 mg iron- 800 mcg Tablet 1 tablet PO DAILY Date of admission: 01/08/24 09:35 Primary Care Provider: Trent Carpio Admitting Provider: Jimenez Chao Attending physician on admission: Jimenez Chao Condition: Stable
[2024-01-08] MEDS: OXYTOCIN 30 UNITS/NS 500 ML 30 UNITS/500 ML BAG 125 UNITS IV CONT (14:07)
--- NOTE | 2024-01-08 15:15 | PC.NURSE ---
heart tones obtained in OR after epidural placement, FHR 135 at 12:24. Patient prepped per usual.
--- NOTE | 2024-01-08 15:38 | OBPPTRN ---
Patient transferred to post room #284 via stretcher. Support person present. Oriented to unit, room, information board, rooming in, admission packet and security measures. Patient verbalizes understanding.
[2024-01-08] MEDS: DEXTROSE 5%/0.45% SOD CHL 1,000 ML 125 ML IV CONT (17:50)
[2024-01-08] MEDS: DOCUSATE SODIUM 100 MG CAPSULE PO (18:56)
[2024-01-08] MEDS: ACETAMINOPHEN 325 MG TABLET 650 MG PO (18:56)
[2024-01-08] MEDS: SIMETHICONE 80 MG TAB.CHEW PO (18:56)
[2024-01-08] MEDS: KETOROLAC 15 MG/ML VIAL (*BKC) IV PUSH (18:56)
[2024-01-09 00:15] VITALS: BP 119/69; PULSE 79; RESP 16; TEMP 36.8; O2SAT 98
[2024-01-09 01:26] VITALS: BP 145/92; PULSE 87; RESP 18; TEMP 36.4; O2SAT 97
[2024-01-09] MEDS: HYDROcodone/acetaminophen (*CRX) 5-325 MG TABLET 1 TAB PO (01:42)
[2024-01-09] MEDS: HYDROcodone/acetaminophen (*CRX) 10-325 MG TABLET 1 TAB PO ×5 (05:40→20:40)
[2024-01-09 06:02] LABS: Basophils Percent Auto 0.3 % (0.2-1.2); Eosinophils Absolute Auto 0.1 K/mm3 (0-0.3); Hematocrit 37.6 % (37.0-47.0); Immature Granulocyte Absolute 0.04 K/mm3 (0.00-0.031); Immature Granulocyte Percent A 0.4 % (0-0.5); Lymphocytes Absolute Auto 1.22 K/mm3 (0.9-3.2); Lymphocytes Percent Auto 13.4 % (18.3-44.2); Mean Corpuscular HGB Conc 31.9 g/dl (32-36); Mean Corpuscular Hemoglobin 30.2 pg (26-34); Mean Corpuscular Volume 94.7 fl (80-100); Mean Platelet Volume 10.2 fl (7.4-10.4); Monocytes Absolute Auto 0.8 K/mm3 (0.1-0.6); Monocytes Percent Auto 9.1 % (2.6-8.5); Neutrophils Absolute Auto 6.9 K/mm3 (1.3-6.7); Neutrophils Percent Auto 75.8 % (45.5-73.1); Platelet Count Result 178 k/mm3 (150-375); Red Blood Count 3.97 M/mm3 (4.2-5.4); Red Cell Distribution Width 13.7 % (11.5-14.5); White Blood Count 9.1 K/mm3 (4.5-10.0)
[2024-01-09 07:45] VITALS: BP 130/62; PULSE 84; RESP 16; TEMP 37.2; O2SAT 97
[2024-01-09] MEDS: KETOROLAC 15 MG/ML VIAL (*BKC) IV PUSH (09:04)
[2024-01-09] MEDS: DOCUSATE SODIUM 100 MG CAPSULE PO ×2 (09:06→16:15)
[2024-01-09] MEDS: SIMETHICONE 80 MG TAB.CHEW PO ×3 (09:07→16:15)
[2024-01-09] MEDS: MULTIVIT/MIN/PREN/FOL AC/IRON TABLET 1 TAB PO (09:07)
[2024-01-09] MEDS: PANTOPRAZOLE 40 MG TABLET PO (09:07)
--- NOTE | 2024-01-09 09:28 | WPDANLDPN2 ---
Anes-Prog Note L&D Date/Time: 01/09/24 09:28 Comfortable throughout: section Neuraxial method: spinal Epidural/Spinal procedure site: tender Neuro status: Neuro function grossly intact. Cardiovascular status: normal Respiratory status: normal Airway patency: baseline Mental status: baseline Post-Op hydration status: normal Vital Signs: Last Vital Signs Temp 36.4 C L 01/09/24 01:26 Pulse 87 01/09/24 01:26 Resp 18 01/09/24 01:26 BP 145/92 H 01/09/24 01:26 Pulse Ox 97 01/09/24 01:26 O2 Del Method Room Air 01/08/24 15:40 Pain score (VAS): 3/10 I/O: Intake & Output 01/08/24 01/09/24 01/09/24 23:59 07:59 15:59 Intake Total 500 1650 Output Total 1900 Balance 500 -250 Post-procedural complaints: pruritis mild, no treatment Patient feedback: Patient satisfied with anesthetic care.
--- NOTE | 2024-01-09 09:29 | WPDANLDNPN2 ---
Anes-Prog Note L&D-Neuraxial Date/Time: 01/09/24 09:29 Neuraxial medications: intrathecal PF morphine Opiod-related complaints: pruritis mild, no treatment Patient feedback: Patient satisfied with post-operative pain management.
[2024-01-09 11:59] VITALS: BP 139/75; PULSE 92; RESP 16; TEMP 36.9; O2SAT 98
--- NOTE | 2024-01-09 12:24 | P.PNOB_ITS ---
OB - PN: Subj Subjective Date/time seen: 01/09/24 12:25 Narrative: Pain OK. Tolerating diet. OB - PN: Obj Data Labs 01/09/24 05:50 Labs: Laboratory Results - last 24 hr 01/09/24 05:50 WBC 9.1 RBC 3.97 L Hgb 12.0 Hct 37.6 MCV 94.7 MCH 30.2 MCHC 31.9 L RDW 13.7 Plt Count 178 MPV 10.2 Immature Gran % (Auto) 0.4 Neut % (Auto) 75.8 H Lymph % (Auto) 13.4 L [place] % (Auto) 9.1 H Eos % (Auto) 1.0 Baso % (Auto) 0.3 Lymph # (Auto) 1.22 [place] # (Auto) 0.8 H Eos # (Auto) 0.1 Baso # (Auto) 0.0 Abs Immat Gran (auto) 0.04 H Absolute Neuts (auto) 6.9 H Absolute Nucleated RBC 0.0 Nucleated RBC % 0.0 OB - PN A/P Plan Comments: A: POD#1, doing well. Would like circumcision for son. P: Routine care. Reviewed circ. Exam Narrative: AVSS I/O OK ABD soft, nontender, fundus firm. Incision c/d/i. EXT nontender
--- NOTE | 2024-01-09 13:20 | PC.NURSE ---
[id number] Consulted with patient to assess needs related to . Discussed with mother her successes, concerns and any questions she has. Parents shared that they bottle fed their first child and they are undecided on what feeding method they want to do at this time. Assistance was offered to support their feeding choice. Parents state they have used a nipple shield once but didn't feel like it worked. Mother demonstrated improper use of the nipple shield so, we reviewed cleaning the nipple shield and the appropriate way to apply and use as a tool. Discussed with mom the nipple shield precautions, possible complications associated with the risks and benefits. Reviewed practicing with a nipple shield, then without and how to protect the milk supply and production. Mom and baby guide referred to as a resource for outpatient services, community resources and when to call a provider. Mom voiced understanding of the importance of hand expression, nipple stimulation and initiating a pumping schedule if continues to nurse with the shield. Encouraged understanding the benefits of skin to skin, responding to feeding cues, frequencies of feeding 8-12 times in 24 hours (approximately 2-3 hours), duration of feedings, milk production, intake/output feeding sheet and signs of adequate intake encouraging swallowing at the breast. Father of baby requested a pump. Mother's assessment has a wide space between breast, minimal soft breast tissue felt and nipples are light pink with little to no changes in the breast during . Mother declines pumping at this time related to big sister coming to visit and others to follow. Resources used to facilitate learning were used from the visual handouts/ tool/mom and baby guide. Parents voiced understanding of the education shared. Reported to the Primary RN.
[2024-01-09] MEDS: IBUPROFEN 600 MG TABLET PO ×2 (16:15→23:30)
[2024-01-09] MEDS: ACETAMINOPHEN 325 MG TABLET 650 MG PO (23:30)
[2024-01-10] MEDS: IBUPROFEN 600 MG TABLET PO ×2 (05:10→13:07)
[2024-01-10] MEDS: ACETAMINOPHEN 325 MG TABLET 650 MG PO ×2 (05:10→13:06)
[2024-01-10 08:00] VITALS: BP 124/71; PULSE 79; RESP 16; TEMP 36.7; O2SAT 97
[2024-01-10] MEDS: MULTIVIT/MIN/PREN/FOL AC/IRON TABLET 1 TAB PO (08:44)
[2024-01-10] MEDS: SIMETHICONE 80 MG TAB.CHEW PO ×2 (08:44→13:07)
[2024-01-10] MEDS: PANTOPRAZOLE 40 MG TABLET PO (08:44)
[2024-01-10] MEDS: DOCUSATE SODIUM 100 MG CAPSULE PO (08:44)
[2024-01-10] MEDS: HYDROcodone/acetaminophen (*CRX) 5-325 MG TABLET 1 TAB PO (08:44)
--- NOTE | 2024-01-10 09:36 | PM.OBPNVD ---
OB - PN: Subj Subjective Date/time seen: 01/10/24 09:36 Narrative: Pain OK. Tolerating diet. Would like to go home. OB - PN: Obj Data Labs 01/09/24 05:50 OB - PN A/P Plan Comments: A: POD#2, doing well. P: Home to f/u 4 weeks. Exam Narrative: AVSS ABD soft, nontender, fundus firm. Incision c/d/i. EXT nontender
--- NOTE | 2024-01-10 14:06 | PC.NURSE ---
Patient was given the opportunity to view the discharge video [facility], The First Two Weeks and to ask questions. Patient declined viewing the video and has been given the mother/baby guide for home reference.
[2024-01-12 10:25] VITALS: BP 124/67; PULSE 79; RESP 18; TEMP 36.6; O2SAT 99
== END 2024-01-10 15:30 | disposition home or self-care (01) | DRG 785 ==
LOC: ANHLDR 13:24 → ANHOB2 15:48
PROVIDERS: Admitting Provider Obstetrics & Gynecology; PCP Family Medicine Adolescent Medicine; Visit Provider Obstetrics & Gynecology
PROC: 10D00Z1 Extraction of Products of Conception, Low, Open Approach (ICD-10-PCS; CPT 59514; principal; 2024-01-08 12:00)
DX: O34.219 Maternal care for unspecified type scar from previous cesarean delivery (principal); Z30.2 Encounter for sterilization; O99.824 Streptococcus B carrier state complicating childbirth; O99.62 Diseases of the digestive system complicating childbirth; K21.9 Gastro-esophageal reflux disease without esophagitis; O99.214 Obesity complicating childbirth; Z3A.39 39 weeks gestation of pregnancy; Z37.0 Single live birth
CPT/HCPCS: 36415; 85025; 88302; A9270; J0690; J1885; J2274; J2405; J2590; J3010; J7120